=== PATIENT | male | born 1970 | race Caucasian/White ===

== ENCOUNTER 2017-12-09 20:50 | Emergency (ER) | payer OTHER ==
--- NOTE | 2017-12-09 21:13 | ED GENERAL ADULT ---
See Addendum History of Present Illness General Chief Complaint: ETOH/Drug Related Complaint Stated Complaint: ETOH Source: family, old records Exam Limitations: intoxication Vital Signs & Intake/Output Vital Signs & Intake/Output Vital Signs Date Time Temp Pulse Resp B/P B/P Pulse O2 O2 Flow FiO2 Mean Ox Delivery Rate 12/10 1352 100.7 109 16 160/106 98 12/10 1142 98.8 104 16 140/90 97 Room Air 12/10 0945 99.0 98 16 128/88 12/10 0943 99.0 98 16 128/88 99 Room Air 12/10 0737 97.1 96 18 97/57 98 Room Air 12/10 0736 97.1 96 18 97/57 12/10 0617 97.8 102 16 102/58 12/10 0617 97.8 102 16 102/58 97 Room Air 12/10 0429 97.6 94 16 112/61 94 Room Air 12/10 0355 97.6 94 16 112/61 12/10 0150 97.2 90 16 103/61 12/10 0150 97.2 90 16 103/61 94 Room Air 12/09 2312 98.2 99 16 112/67 12/09 2312 98.3 99 16 112/67 94 Room Air 12/09 2104 98.5 97 20 120/89 96 Room Air ED Intake and Output 12/10 0000 12/09 1200 Intake Total Output Total 500 Balance -500 Output, Urine 500 Allergies Coded Allergies: No Known Allergies (12/09/17) Reconcile Medications Aripiprazole 2 MG TABLET 1 TAB DAILY ANXIETY (Reported) Disulfiram 250 MG TABLET 1 TAB PO DAILY PTSD (Reported) Doxepin HCl 50 MG CAPSULE 1 CAP PO QHS DEPRESSION (Reported) Prazosin HCl 2 MG CAPSULE 1 CAP BID PTSD (Reported) Vortioxetine Hydrobromide (Brintellix) 20 MG TABLET 1 TAB DAILY ANXIETY ( Reported) Triage Note: PT BIBA FROM HOME AFTER CALLED EMS BECAUSE SHE WAS UNABLE TO WAKE HIM UP. PT ADMITTED TO EMS THAT HE HAD BEEN DRINKING. PT SLEEPY AT THIS TIME, BUT AROUSABLE TO VERBAL STIMULI. PER EMS BLOOD SUGAR WAS 109. Triage Nurses Notes Reviewed? 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 Patient has had increasing psych meds for his PTSH, depression, and occasional anger outbursts, recently added Abilify. Has Antabuse for alcohol abuse but does not frequently take it. Had an unknown amount of alcohol today, confirmed by family , and is currently sleeping and difficult to rouse, not answering any questions. He appears to be protecting his airway well. He has had several such incidents , though not this bad, and has been psychiatrically deteriorating, per family, who wish for patient to have inpatient psychiatry stay to address the issues underlying his alcohol abuse, specifically his PTSH. (Brigido Denson MD) Past History Medical History Any Pertinent Medical History? see below for history Surgical History Surgical History: non-contributory Family History Hx Contributory? No (Brigido Denson MD) Review of Systems Review of Systems Constitutional: Reports: no symptoms. EENTM: Reports: no symptoms. Respiratory: Reports: no symptoms. Cardiovascular: Reports: no symptoms. GI: Reports: no symptoms. Genitourinary: Reports: no symptoms. Musculoskeletal: Reports: no symptoms. Skin: Reports: no symptoms. Neurological/Psychological: Reports: no symptoms. Hematologic/Endocrine: Reports: no symptoms. Immunologic/Allergic: Reports: no symptoms. All Other Systems: Reviewed and Negative (Brigido Denson MD) Physical Exam Physical Exam General Appearance: well developed/nourished, intoxicated Head: atraumatic, normal appearance Eyes: Bilateral: normal appearance, PERRL. Ears, Nose, Throat: normal ENT inspection Neck: normal inspection, supple Respiratory: normal breath sounds, no respiratory distress Cardiovascular: regular rate/rhythm Gastrointestinal: soft, non-tender Back: normal inspection, normal range of motion Extremities: normal inspection, normal range of motion Neurologic/Psych: Obtunded Skin: intact, normal color, warm/dry (Brigido Denson MD) Core Measures ACS in differential dx? No CVA/TIA Diagnosis: No Sepsis Present: No Sepsis Focused Exam Completed? No (Beverley OLSON,Alexey Barnard) Progress Differential Diagnoses I considered the following diagnoses in my evaluation of the patient: stroke, coma, intoxication, trauma. Plan of Care: Orders Procedure Date/time Status Regular Diet 12/10 B Active Patient Safety Monitor 12/09 2307 Active URINALYSIS 12/09 2236 Complete ED CRISIS PSYCH CONSULT 12/09 2203 Active URINE DRUG SCREEN FOR ER ONLY 12/09 2125 Complete ETHANOL 12/09 2125 Complete COMPREHENSIVE METABOLIC PANEL 12/09 2125 Complete CBC WITHOUT DIFFERENTIAL 12/09 2125 Complete Current Medications Sig/Maryann Start time Last Medication Dose Stop Time Status Admin Disulfiram 250 MG DAILY 12/11 1000 UNVr (Antabuse) Doxepin HCl 50 MG AT BEDTIME 12/10 2199 UNVr (Sinequan) Prazosin HCl 2 MG BID 12/10 1417 UNVr (Minipress 2 Mg.) Aripiprazole 2 MG DAILY 12/10 141 UNVr (Abilify) Laboratory Tests 12/09/179: Urine Opiates Screen < 100.00, Methadone Screen < 40, Barbiturate Screen < 60, Ur Phencyclidine Scrn < 6.00, Amphetamines Screen < 100, U Benzodiazepines Scrn < 85, Urine Cocaine Screen < 50, Urine Cannabis Screen < 5.00, Urine Color YEL, Urine Clarity CLEAR, Urine pH 6.0, Ur Specific [place] 1.010, Urine Protein NEG, Urine Ketones NEG, Urine Nitrite NEG, Urine Bilirubin NEG, Urine Urobilinogen 0.2, Ur Leukocyte Esterase NEG, Ur Microscopic EXAM NOT REQUIRED, Urine Hemoglobin NEG, Urine Glucose NEG 12/09/172224: Anion Gap 17 H, Estimated GFR > 60, BUN/Creatinine Ratio 17.1, Glucose 107 H, Calcium 8.7, Total Bilirubin 0.3, AST 122 H, ALT 128 H, Alkaline Phosphatase 60, Total Protein 7.4, Albumin 4.5, Globulin 2.9, Albumin/Globulin Ratio 1.6, CBC w Diff NO MAN DIFF REQ, RBC 4.74, MCV 95.1 H, MCH 32.0 H, MCHC 33.7, RDW 14.0, MPV 7.9, Gran % 45.2, Lymphocytes % 46.9, Monocytes % 6.3, Eosinophils % 1.4, Basophils % 0.2, Absolute Granulocytes 2.7, Absolute Lymphocytes 2.8, Absolute Monocytes 0.4, Absolute Eosinophils 0.1, Absolute Basophils 0, Serum Alcohol 465.0 Initial ED EKG: none (Jarett OLSON,Brigido) Hand-Off Endorsed To: Florencio Vega DO Endorsed Time: 0700 Pending: consult (Beverley OLSON,Alexey Barnard) Departure Departure Disposition: STILL A PATIENT Condition: Stable Referrals: Stacey OLSON,Regina Mitchell (PCP/Family) Departure Forms: Customer Survey General Discharge Information (Jarett OLSON,Brigido) Departure Clinical Impression Primary Impression: Alcohol intoxication Secondary Impressions: Obtundation, PTSD (post-traumatic stress disorder) (Beverley OLSON,Alexey Barnard) Departure Comments 12/10/17 The patient was signed out to me by Dr. Lowery. He is been evaluated by crisis and is pending disposition. He also has a history of posttraumatic stress disorder. (Florencio Vega DO) Critical Care Note Critical Care Note Critical Care Time: non-applicable (Beverley OLSON,Alexey Barnard)
[2017-12-09] MEDS ORDERED: ARIPIPRAZOLE2 MG (21:18)
[2017-12-09] MEDS ORDERED: DOXEPIN HCL50 MG PO (21:19)
[2017-12-09] MEDS ORDERED: PRAZOSIN HCL2 M1 (21:20)
[2017-12-09] MEDS ORDERED: BRINTELLIX20 M1 (21:22)
[2017-12-09] MEDS ORDERED: DISULFIRAM250 M1 PO (21:23)
[2017-12-09 22:36] LABS: ABSOLUTE BASOPHIL COUNT 0 /CUMM (0.0-0.2); ABSOLUTE EOSINOPHIL COUNT 0.1 /CUMM (0.0-0.7); ABSOLUTE GRANULOCYTE CT 2.7 /CUMM (1.4-6.5); ABSOLUTE LYMPH COUNT 2.8 /CUMM (1.2-3.4); ABSOLUTE MONOCYTE COUNT 0.4 /CUMM (0.10-0.60); BASOPHIL % 0.2 % (0.0-2.0); EOSINOPHIL % 1.4 % (0-5); GRANULOCYTE % 45.2 % (42.2-75.2); HEMATOCRIT 45.1 % (42-52); MEAN CORPUSCULAR HGB CONC 33.7 G/DL (33.0-37.0); MEAN CORPUSCULAR VOLUME 95.1 FL (80.0-94.0); MEAN PLATELET VOLUME 7.9 FL (7.4-10.4); PLATELET COUNT 146 /CUMM (130-400); RED BLOOD CELL CT 4.74 /CUMM (4.70-6.10); WHITE BLOOD CELL COUNT 5.9 /CUMM (4.8-10.8)
--- NOTE | 2017-12-10 13:20 | ED PSYCH CRISIS CONSULTATION ---
See Addendum Crisis Consult Basic Assessment Date of Consult: 12/10/17 Responsible Person/Accompanied By: Self, Insurance Authorization: Insurance #1: Insurance name: GRACIE MESSINA Phone number: Policy number: [id number] Group number: Authorization number: ED Provider: Patient's ED Provider: Brigido Denson MD Primary Care Physician: Patient's PCP: Regina Ibarra MD PCP's Current Psychiatrist: Dr. Edmondson Chief Complaint: ETOH/Drug,trauma Related Complaint Patient's Quote: "I drank too much. I've had a problem for a while". Present Illness: Pt is a 47 year old white male BIBA last evening from his home. Last evening pt was found by his to be unresponsive and she called 911. Upon evaluation pt stated' "I drank too much. I've had a drinking problem for a while". Pt stated that he drinks sometimes a bottle of Captain Gilbert a day. He hides the alcohol from his and he drinks alone. 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 He admitted that his drinking has worsened greatly since that time. He described his behavior as self medicating. He also explained that his is not aware of when he drinks and the extent given that he hides it from her. Pt has been treated by Dr. Edmondson for the past 1 1/2years. He is prescribed Doxepin, Trintellix, Prazonsin, Abilify and Antabuse. Pt has also seen Alejo Louis LCSW of [place] for the past 1 1/2 years as well for counseling. Pt and his stated that they have recently been exploring other options for treatment believing pt has had little success with current providers. As of recently pt has seen Dr. Jamey Grimes, PhD of [facility]. Pt saw Dr. Grimes one time and was supposed to see him today for follow up. Pt had also seen psychiatrist Dr. Hdez of [place] one time as well. Dr. Hdez recently prescribed the Abilify. Pt stated that he has a history of two inpatient hospitalizations for primarily alcohol abuse. Pt denied he ever used any illicit substances. In November of 2015 pt spent 28 days at [facility] in . In February of 2017 pt spent 25 days at a program in . Pt couldn't recall the name of the program. Pt also stated that he completed 10 sessions of EMDR therapy three months ago with a therapist in [place]. Pt denied any current or history of suicidal or homicidal ideations or behavior. Pt stated that he currently feels well and not experiencing any alcohol withdrawal symptoms. Pt was alert and oriented. He was cooperative and receptive toward the evaluation process. Pt's thoughts and speech were clear well organized. He denied any hallucinations or delusions. Presented with depressed mood and congruent affect. Pt's , mother and father were all with pt today. expressed that she was very concerned over pt's escalating problems with alcohol and unresolved trauma. She fears for his safety should he return home. Pt's parents agreed with 's position. They would like to see pt in an inpatient program to address his trauma and alcohol abuse. Pt's explained that they have been in communication with Ameena Hayes PsyD of [place]. Dr. Hayes is an expert in dealing with trauma and first responders. They requested that clinician call Dr. Hayes to discuss inpatient options. Patient's current needs meet an inpatient level of care. Pt may be at heightened risk for accidental self harm given the amount of alcohol use. Pt's significant trauma issues also have not been properly addressed. Clinician was able to reach Dr. Hayes [phone]. She explained that she would refer pt to the [facility]. She asked that pt call Elise an intake counselor at [phone]. Pt would likely have to go to either [place], [place] or [place] where the facilities are located if accepted. Patient's Address: [address] [place] [address] Other Phone Number: Who Do You Live With? Spouse Family/Informants Interviewed: Pt's and parents. Dr. Jamey Grimes and Dr. Ameena Hayes. Allergies - Coded Allergies: No Known Allergies (12/09/17) Current Medications - Scheduled Medications Aripiprazole 2 MG TABLET 1 TAB DAILY ANXIETY #45 (Reported) Entered as Reported by Mihaela Fuchs on 12/09/172117 Disulfiram 250 MG TABLET 1 TAB PO DAILY PTSD #30 (Reported) Entered as Reported by Mihaela Fuchs on 12/09/172122 Doxepin HCl 50 MG CAPSULE 1 CAP PO QHS DEPRESSION #30 (Reported) Entered as Reported by Mihaela Fuchs on 12/09/172118 Prazosin HCl 2 MG CAPSULE 1 CAP BID PTSD #180 (Reported) Entered as Reported by Mihaela Fuchs on 12/09/172119 Vortioxetine Hydrobromide (Brintellix) 20 MG TABLET 1 TAB DAILY ANXIETY #90 ( Reported) Entered as Reported by Mihaela Fuchs on 12/09/172121 Laboratory Results: Laboratory Tests 12/09/172248: Urine Opiates Screen < 100.00, Methadone Screen < 40, Barbiturate Screen < 60, Ur Phencyclidine Scrn < 6.00, Amphetamines Screen < 100, U Benzodiazepines Scrn < 85, Urine Cocaine Screen < 50, Urine Cannabis Screen < 5.00, Urine Color YEL, Urine Clarity CLEAR, Urine pH 6.0, Ur Specific [place] 1.010, Urine Protein NEG, Urine Ketones NEG, Urine Nitrite NEG, Urine Bilirubin NEG, Urine Urobilinogen 0.2, Ur Leukocyte Esterase NEG, Ur Microscopic EXAM NOT REQUIRED, Urine Hemoglobin NEG, Urine Glucose NEG 12/09/172224: Anion Gap 17 H, Estimated GFR > 60, BUN/Creatinine Ratio 17.1, Glucose 107 H, Calcium 8.7, Total Bilirubin 0.3, AST 122 H, ALT 128 H, Alkaline Phosphatase 60, Total Protein 7.4, Albumin 4.5, Globulin 2.9, Albumin/Globulin Ratio 1.6, CBC w Diff NO MAN DIFF REQ, RBC 4.74, MCV 95.1 H, MCH 32.0 H, MCHC 33.7, RDW 14.0, MPV 7.9, Gran % 45.2, Lymphocytes % 46.9, Monocytes % 6.3, Eosinophils % 1.4, Basophils % 0.2, Absolute Granulocytes 2.7, Absolute Lymphocytes 2.8, Absolute Monocytes 0.4, Absolute Eosinophils 0.1, Absolute Basophils 0, Serum Alcohol 465.0 (Pelon Holman LPC) Past History Past Medical History Neurological: NONE EENT: NONE Cardiovascular: NONE Respiratory: NONE Gastrointestinal: NONE Hepatic: NONE Renal: NONE Musculoskeletal: NONE Psychiatric: anxiety, depression, PTSD Endocrine: NONE Blood Disorders: NONE Cancer(s): NONE INVESTMENTS MANAGER/Reproductive: NONE Past Surgical History Surgical History: non-contributory Psychosocial History Strengths/Capabilities: Pt articulate and motivated for tx. Has supportive family. Physical Limitations (Interventions): None reported. Psychiatric Treatment History Psych Treatment Psychiatric Treatment Yes Inpatient Treatment No Outpatient Treatment Yes Location of Treatment [facility] Reason for Treatment Symptoms of PTSD, depression and anxiety. Dates of Treatment 2017-current Response to Treatment Pt and stated that they have seen little change with treatment thus far. Diagnosis by History: PTSD, depression and anxiety Substance Use/Abuse History Drug Use/Abuse Substances Used/Abused Yes Substance Used/Abused Alcohol Last Used yesterday How much used/taken "one bottle of Captain Gilbert" How often mostly daily. Substance Abuse Treatment Substance Abuse Treatment Past Substance Abuse [place] Yes Inpatient Treatment Yes Outpatient Treatment No Location of Treatment [facility] [place] 2015. Unknown program in 2016. Reason for Treatment Alcohol abuse Dates of Treatment 2015, 2016 Response to Treatment Pt expressed that it was helpful but continued to drink alcohol. (Pelon Holman LPC) Current Mental Status Mental Status Orientation: Person, Place, Situation Affect: Depressed Speech: WNL Neuro-vegetative: Sleep Disturbance Appearance Appearance- Dress/Hygiene: Pt dressed in his clothes. Hygiene wnl. Behaviors Thought Process: WNL Thought Content: WNL Memory: WNL Insight: Fair SI/HI Risk Assessment Past Suicidal Ideation/Attempts No Current Suicidal Ideation/Att No Past Homicidal Ideation/Att: No Current Homicidal Ideation/Attempts No Degree of Intent: None Risk Factors: high anxiety/distress, SA/MH hospitalized, substance abuse, male Lethality Ratin PTSD Checklist PTSD Score: PTSD Score: Response Value Disturbing memories,thoughts,images of stressful experience? A little bit 2 Disturbing dreams of stressful experience from past? A little bit 2 Suddenly acting/feeling as if reliving stressful experience? A little bit 2 Unpleasant feeling when reminded of stressful experience? A little bit 2 Physical reactions when reminded of stressful experience? A little bit 2 Avoid thinking/talking of stressful exp. to avoid reactions? A little bit 2 Avoid activities/situations that remind of stressful exp.? A little bit 2 Trouble remembering important parts of stressful experience? A little bit 2 Loss of interest in things that you used to enjoy? A little bit 2 Feeling distant or cut off from other people? A little bit 2 Feeling emotionally numb/unable to love those close to you? A little bit 2 Feeling as if your future will somehow be cut short? A little bit 2 Trouble falling or staying asleep? Quite a bit 4 Feeling irritable or having angry outbursts? Moderately 3 Having difficulty concentrating? Moderately 3 Being super alert or watchful on guard? Quite a bit 4 Feeling jumpy or easily startled? Moderately 3 Total 41 ED Management Sitter: Yes Restraints: No (Pelon Holman LPC) DSM5/PS Stressors/Medical Prob Diagnosis' (DSM 5, Stressors, Medical): F43.9 Unspecified Trauma-and Stressor-Related Disorder F32.9 Unspecified Depressive Disorder F41.9 Unspecified Anxiety Disorder F10.20 Alcohol Use Disorder, Severe Current GAF: 25 (Pelon Holman LPC) Departure Disposition Psych Medical Clearance Date: 12/10/17 Medically Cleared at: 1030 Time Started: 1030 Time Ended: 1130 Psychiatrist Consulted: Alexey Bashir MD Date Disposition Established: 12/10/17 Time Disposition Established: 1200 Plan for Disposition - Modality: Inpatient dual Rationale for Disposition: Pt's alcohol use has caused significant safety and medical problems. Pt also has significant unresolved trauma. Pt and family are in agreement with plan for inpatient level of care to address trauma and alcohol abuse. Type of IP Admission: Voluntary Referrals Stacey OLSON,Regina Mitchell (PCP/Family) (Pelon Holman LPC) Addendum Note Addendum 12/11/17: Met with patient, and mother for morning re-evaluation. Pt reports he is still working on getting into an inpatient facility out of state. He reports the ones he was working on yesterday were too expensive while using his insurance. Pt and family are in the process of looking into [facility] ([facility] and [facility]. Patient's offered several compliants about the ED- pt was not being provided food regularly, was not getting his trintilex ( antidepressant), and hasn't been offered a shower. Plan is for family to let Crisis know any updates regarding placement. (Rob TORRES,Barbara)
[2017-12-11 13:07] VITALS: BP 126/84
== END 2017-12-11 13:13 ==
LOC: ERH
PROVIDERS: Internal Medicine
DX: F10.129 Alcohol abuse with intoxication, unspecified (principal); F43.10 Post-traumatic stress disorder, unspecified
CPT/HCPCS: 80307; 81003; 87804; 87804-59; G0463; G0480